=== PATIENT | female | born 1975 | race Two or more races ===

== ENCOUNTER → 2025-04-13 12:30 | Outpatient (BNV) | payer OTHER, SELFPAY | PROVIDERS: PCP Nurse Practitioner Family; Visit Provider Internal Medicine | DX: Z12.31 Encounter for screening mammogram for malignant neoplasm of breast (principal) | CPT/HCPCS: 77063; 77067 ==

== ENCOUNTER 2025-04-13 12:33 | Outpatient (REF) | payer OTHER, SELFPAY ==
--- OUTSIDE RECORDS SUMMARY | 2025-04-13 12:38 | XMS_ITS ---
Author Organization [facility] Address [address] [place] [phone] Care Team Providers Care Hospice Office Coordinator Name Role Phone Amara Ashraf Primary Care Provider Cristian Nuno Unavailable [phone] Encounters En[facility] [address] [facility]/17/[facility]24 Cristian Stinson Plan Of Treatment No Information Progress Notes * Jaja NOWAKDOB: [birth year] (50 yo F)Acc No.[id number]:06/17/2024 Progress Notes Patient:?Jaja NOWAK Provider:?Cristian Stinson DPM :1975???Age:49 Y???Sex:Female D ate:06/17/2024 Address:[address] [place], [place] [id number] Pcp:Amara Ashraf Subjective: * Chief Complaints: * ??? * Medical History:? Objective: * Vitals:? Assessment: Plan: * Treatment: * Images: * The named appointment provid er may or may not be the originator of this progress note, and it is not deemed complete until electronically signed by the appointment provider. Sign off status: Pending * Provider:?Cristian Stinson DPM Date:?2023 Generated for Luis block/Nona/eTransmitting on:?04/13/2025 12:38 PM EDT
== END 2025-04-13 12:34 | disposition home or self-care (01) ==
LOC: HO.MAMMO 12:33
PROVIDERS: PCP Nurse Practitioner Family; Visit Provider Nurse Practitioner Family
DX: Z12.31 Encounter for screening mammogram for malignant neoplasm of breast (principal)
CPT/HCPCS: 77063; 77067

== ENCOUNTER 2025-05-17 14:21 | Outpatient (REF) | payer OTHER, SELFPAY ==
--- OUTSIDE RECORDS SUMMARY | 2025-05-17 14:52 | XMS_ITS | Encounter Summary ---
Author Organization [facility] Address [address] [place] [address] Care Team Providers Care Assistant Film Editor Name Role Phone Amara Ashraf MD Primary Care Provider [phone] Reason for Visit * Reason Onset Date Comments PAC Surgery/procedure Scheduling 11/21/2023 Encounter Details Date Type Department Care Team (Late st Contact Info) Description 11/21/2023 Telephone [facility] Endoscopy [address] [place] [address] Telephone Intake, Staff PAC Surgery/procedure Scheduling Social History Tobacco Use Types Packs/Day Years Used Date Smoking Tobacco: Never Smokeless Tobacco: Never Comments:: Alcohol Use Standard Drinks/Week Comments No 0 (1 standard drink = 0.6 oz pur e alcohol) Transportation Answer Date Recorded Please veronica the areas for wh ich the patient would like information or assistance: Stress 11/13/2023 Lack of Transportation (Medical) Not on file 11/13/2023 Housing Stability Answer Date Recorded Please veronica the areas for wh ich the patient would like information or assistance: Stress 11/13/2023 Unable to Pay for Housing in the Last Year Not o n file 11/13/2023 Last EPDS Total Score Not on file 11/13/2023 Unstable Housing in the Last Year Not on file 11/13/2023 Comments Unknown Sex and Gender Information Value Date Recorded Sex Assigned at Female 07/13/2021 12:21 PM EDT Legal Sex Female 6:49 PM EDT Gender Identity Female 07/13/2021 12:21 PM EDT Sexual Orientation Straight 07/13/2021 12 :21 PM EDT documented as of this encounter Miscellaneous Notes * Telephone Encounter - Silvia Sutton - 11/21/2023 2:21 PM EST Patient scheduling for screening colonoscopy pls call patient to schedule documented in this encounter Plan of Treatment Not on file documented as of this encounter Visit Diagnoses Not on filedocumented in this encounter Care Teams Assistant Film Editor Relationship Specialty Start Date End Date Amara Ahsraf MD [address] [place] [id number] PCP - General Family Medicine 06/06/17 documented as of this encounter
--- OUTSIDE RECORDS SUMMARY | 2025-05-17 14:52 | XMS_ITS | Clinical Summary ---
Author Organization [employer] Address [address] [place] [address] Care Team Providers Care Aircraft Rigging And Controls Mechanic Name Role Phone Mima Caldwellily MICHAEL Primary Care Provider [phone] Allergies No known active allergies Medications cyanocobalamin (Vitamin B-12) 500 MCG tablet Take 1 tablet by mouth Once per day. Active Ascorbic Acid (vitamin C) 250 MG tablet Take 1 tablet by mouth Once per day. Active Multiple Vitamin (multivitamin) tablet Take 1 tablet by mouth Once per day. Active gabapentin (Neurontin) 100 MG capsule TAKE 1 CAPSULE (100 MG) BY MOUTH AT BEDTIME FOR 7 DAYS, THEN 2 CAPSULES (200 MG) AT BEDTIME FOR 7 DAYS, THEN 3 CAPSULES (300 MG) AT BEDTIME FOR 16 DAYS. 69 capsule 03/25/2025 Active valACYclovir (Valtrex) 500 MG tabletIndicatio ns:HSV infection Take 4 tablets (2,000 mg) by mouth 2 times daily. 16 tablet 11 05/04/2025 Active Tirzepatide-Judah ght Management (Zepbound) 2.5 MG/0.5ML solution auto-injectorIn dications:Obesi ty (BMI 30-39.9) Inject 0.5 mL (2.5 mg) under the skin 1 (one) time per week. 2 mL 1 05/17/2025 07/12/20 25 Active Active Problems Problem Noted Date Diagnosed Date Lumbar radiculopathy 05/17/2025 HSV infection 05/04/2025 Health care maintenance 02/22/2025 Assessment & Plan (03/16/2025 2:10 PM EDT): Mammogram ordered, Per pt report pap last year, Cologuard ordered Metabolic labs as ordered below Breast screening 02/22/2025 Assessment & Plan (03/16/2025 2:09 PM EDT): Mammogram ordered Encounter for screening for malignant neoplasm o f colon 02/22/2025 Assessment & Plan (03/16/2025 2:09 PM EDT): Cologuard ordered Screening for colon cancer 02/22/2025 SORAYA positive 02/22/2025 Assessment & Plan (03/16/2025 2:09 PM EDT): Chronic pain, referral to rheumatology Obesity (BMI 30-39.9) 02/22/2025 Assessment & Plan (03/16/2025 2:09 PM EDT): Has lost weight, attributes wt loss with less joint pains, monitor for weight gain Hot flashes 02/22/2025 Assessment & Plan (03/16/2025 2:10 PM EDT): Suspect perimenopause Rash of foot 02/22/2025 Assessment & Plan (03/16/2025 2:09 PM EDT): Referral to podiatry Class 1 obesity 01/19/2025 Spider veins 03/06/2024 Class 2 obesity 06/21/2022 Lesion of vulva 06/21/2022 Thumb injury 09/21/2021 Acquired keratosis palmaris et plantaris 017 Acrochordon 06/07/2017 Inflamed seborrheic keratosis 06/07/2017 Neoplasm of uncertain behavior of skin 7 Bilateral foot pain 04/23/2017 Callus of foot 04/23/2017 Congenital pes planus 04/23/2017 History of pain when walking 04/23/2017 Dysuria 04/16/2017 Polyuria 04/16/2017 Numerous moles 04/08/2017 Menorrhagia 02/25/2017 Pain in hand 02/20/2017 Elevated antinuclear antibody (SORAYA) level 2016 Cough 12/26/2016 Eczema 12/26/2016 Fatigue 12/26/2016 Heartburn 12/26/2016 Polyarthritis 12/26/2016 Sore throat 12/26/2016 Abdominal pain 11/27/2016 Varicose veins with inflammation 04/19/2016 Encounters Date Type Department Care Team Description 05/17/2025 2:30 PM EDT Office Visit [facility] [address] [place] [address] Fior Caldwell NP Obesity (BMI 30-39.9) (Primary Dx); Lumbar radiculopathy 05/17/2025 Travel 05/10/2025 Travel 05/04/2025 Orders Only [facility] [address] [place] [address] Fior Caldwell NP HSV infection (Primary Dx) 05/03/[address] [address] Fior Caldwell NP Nurse Triage 03/24/[address] [address] Fior Caldwell NP 03/16/[address] [address] Fior Caldwell NP Referral-Rheumatology 02/22/2025 9:45 AM EDT Office Visit [address] [address] Fior Caldwell NP Health care maintenance (Primary Dx); Breast screening; Encounter for screening for malignant neoplasm of colon; Screening for colon cancer; SORAYA positive; Obesity (BMI 30-39.9); Hot flashes; Rash of foot 02/22/2025 Travel 02/17/2025 Travel 02/15/2025 Patient Outreach [facility] [address] [place], [place] [phone] Fior Caldwell NP Pre-visit Planning (SDOH negative, Tobacco screening negative. ) from Last 3 Months Immunizations Immunization Administration Dates Next Due Influenza injectable quadrivalent preservative f ree 09/13/2018 PPD Test 04/08/2017 Social History Tobacco Use Types Packs/Day Years Used Date Smoking Tobacco: Never Smokeless Tobacco: Never Tobacco Cessation:Counseling Given: Not Answered Housing Stability Answer Date Recorded What is your housing situati on today? I do not have housing (Staying with others, in a hotel, in a skilled nursing, living outside on the street, on a beach, in a car, or in a park 02/22/[address] you li ve. Do you have problems with any of the following? Inadequate heat 02/22/2025 Food Insecurity Answer Date Recorded Within the past 12 months, y ou worried that your food would run out before you got money to buy more: Sometimes True 2024 Within the past 12 months,th e food you bought just didn't last and you didn't have enough money to get more: Sometimes True 02/22/2025 Transportation Answer Date Recorded In the past 12 months, has l ack of transportation kept you from medical appts, meetings, work or from getting things needed for daily living? No 02/15/2025 Utilities Answer Date Recorded In the past 12 months, has t he electric, gas, oil or water company threatened to shut off services in your home? Yes 02/22/2025 Depression Answer Date Recorded Patient Health Questionnaire-2 Score 3 02/22/2025 Internet Access Answer Date Recorded Internet Access Q1 Yes 02/15/2025 Internet Access Q2 Not on file 02/15/2025 Comments Unknown Sex and Gender Information Value Date Recorded Sex Assigned at Female 11/04/2024 3:15 PM EST Legal Sex Female 9:04 AM EDT Gender Identity Female 02/11/2025 11:00 AM EDT Sexual Orientation Don't know 02/11/2025 11 :00 AM EDT Last Filed Vital Signs Vital Sign Reading Time Taken Comments Blood Pressure 122/78 05/17/2025 2:00 PM EDT Pulse 74 05/17/2025 2:00 PM EDT Temperature 35.6 C (96 F) 05/17/2025 2:00 PM EDT Respiratory Rate 14 05/17/2025 2:00 PM EDT Oxygen Saturation 97% 05/17/2025 2:00 PM EDT Inhaled Oxygen Concentration - - Weight 76.7 kg (169 lb) 05/17/2025 2:00 PM EDT Height 157.5 cm (5' 2 ) 05/17/2025 2:00 PM EDT Body Mass Index 30.91 05/17/2025 2:00 PM EDT Plan of Treatment Upcoming Encounters Date Type Department Care Team (Late st Contact Info) Description 06/25/2025 3:30 PM EDT Office Visit [facility] [address] [place], [place] [phone] Fior Caldwell NP [address] [place] [address] Health Maintenance Due Date Last Done Comments CT Colonography 1975 Colonoscopy 1973 FIT 1975 FOBT 1975 HIV Screening 1973 Lipid Panel 1973 Sigmoidoscopy 1973 Derm Melanoma Skin Check 1973 Family Planning (PISQ) 1988 Hepatitis C Screening 1991 DTaP/Tdap/Td Vaccines (1 - Tdap) 1992 Hepatitis B Vaccines (1 of 3 - 19+ 3-dose series) 1992 Pap Smear 1994 Cervical Cancer Screening 2003 HPV/Cotest 2003 Pneumococcal Vaccine: 50+ Years (1 of 1 - PCV) 2023 Zoster Vaccines (1 of 2) 2023 COVID-19 Vaccine (3 - 2023-2 5 season) 2024 01/19/2021, 12/13/2020 Influenza Vaccine (Season Ended) 2025 09/13/2018 Disability Screening 02/17/2026 02/17/2025 Alcohol/Substance Use Screening 02/22/2026 02/22/2025 Depression Screening 02/22/2026 02/22/2025, 02/22/2025 SDOH Screening 02/22/2026 02/22/2025 Tobacco Screening 05/17/2026 05/17/2025 Mammogram 04/13/2027 04/13/2025 Colorectal Cancer Screening 02/27/2028 FIT DNA/Cologuard 02/27/2028 02/26/2025 RSV Patients and Patients Aged 60 years or older (1 - 1-dose 75+ series) 2048 HIB Vaccines Aged Out No longer eligi ble based on patient's age to complete this topic HPV Vaccines Aged Out No longer eligi ble based on patient's age to complete this topic Hepatitis A Vaccines Aged Out No long er eligible based on patient's age to complete this topic IPV Vaccines Aged Out No longer eligi ble based on patient's age to complete this topic Meningococcal B Vaccine Aged Out No l onger eligible based on patient's age to complete this topic Meningococcal Vaccine Aged Out No dani noam eligible based on patient's age to complete this topic RSV under 20 months Aged Out No longe r eligible based on patient's age to complete this topic Rotavirus Vaccines Aged Out No longer eligible based on patient's age to complete this topic Procedures Procedure Name Priority Date/Time Associated Diagnosis Comments BI MAMMOGRAM SCREENING TOMOSYNTHESIS BILATERAL Routine 04/13/2025 12:35 PM EDT Breast screening LAB COLOGUARD COLON CANCER SCREEN Routine 02/26/2025 7:38 AM EDT Screening for colon cancer from Last 3 Months Results * BI Mammogram Screening Tomosynthesis Bilateral (04/13/2025 12:35 PM EDT) Anatomical Region Laterality Modality Breast Bilateral Mammography 04/13/2025 12:3 5 PM EDT Narrative 04/18/2025 7:27 PM EDT [facility] [address] [place] [address] Mammography Report Signed Patient: Jaja Nowak MR#: [id number] 82 : 1975 Acct:[id number] Age/Sex: 50 / F ADM Date: 04/13/25 Loc: RUDY.MAMMDagmar Attending Dr: Fior Caldwell DIRECTOR GLOBAL STRATEGIC PUBLISHER SALES Ordering Physician: Fior Caldwell DIRECTOR GLOBAL STRATEGIC PUBLISHER SALES Results: 2Benign Findings Date of Service: 04/13/25 Follow Up: 1 Year From Orig inal Mammogram Procedure(s): MM tomosynthesis screening BI Accession Number(s): [id number] cc: Fior Caldwell DIRECTOR GLOBAL STRATEGIC PUBLISHER SALES EXAMINATION: MM SCREENING DIGITAL BREAST TOMOSYNTHESIS, BILATERAL CLINICAL INFORMATION: Screening. Asymptomatic. COMPARISON: Mammography: Comparison is made with available priors TECHNIQUE: Digital breast mammography with tomosynthesis is performed in both the craniocaudal and mediolateral oblique views along with computer-aided detection (CAD). FINDINGS: The breasts are heterogeneously dense, which may obscure small masses (ACR BI-RADS breast composition Category c). Bilateral reduction mammoplasty. There are no significant masses, abnormal calcifications, or other abnormalities. MM/MM tomosynthesis screening BI IMPRESSION: No mammographic evidence of malignancy. ASSESSMENT: BI-RADS BI-RADS 2 - Benign Findings RECOMMENDATION: Routine annual mammography screening. 1 year F/U This examination should not preclude the clinical evaluation of a suspicious palpable abnormality. This patient's information was entered into a reminder system with a target due date for their next mammogram. Electronically signed by: Sylvia Quijano DO 04/18/2025 07:25 PM EDT RP Dictated By: Sylvia Quijano DO Signed By: <Electronically signed by Sylvia Quijano DO in OV> 04/18/25 192 DD/ 1235 TD/TT: 04/13/25 1246 Engine Monitor: Procedure Note Donotuseinterpreter, Image - [facility]18/[facility] [address] [place] [address] Mammography Report Signed Patient: Jaja NowakMR#: [id number] 82 : 1975Acct:[id number] Age/Sex: 50 / FADM Date: 04/13/25 Loc: .MAMMO Attending Dr: Fior Caldwell DIRECTOR GLOBAL STRATEGIC PUBLISHER SALES Ordering Physician: Fior Caldwell NPResults: 2Benign Findings Date of Service: 04/13/25Follow Up: 1 Year From Orig [facility] Mammogram Procedure(s): MM tomosynthesis screening BI Accession Number(s): [id number] cc: Fior Caldwell DIRECTOR GLOBAL STRATEGIC PUBLISHER SALES EXAMINATION: MM SCREENING DIGITAL BREAST TOMOSYNTHESIS, BILATERAL CLINICAL INFORMATION: Screening. Asymptomatic. COMPARISON: Mammography: Comparison is made with available priors TECHNIQUE: Digital breast mammography with tomosynthesis is performed in both the craniocaudal and mediolateral oblique views along with computer-aided detection (CAD). FINDINGS: The breasts are heterogeneously dense, which may obscure small masses (ACR BI-RADS breast composition Category c). Bilateral reduction mammoplasty. There are no significant masses, abnormal calcifications, or other abnormalities. MM/MM tomosynthesis screening BI IMPRESSION: No mammographic evidence of malignancy. ASSESSMENT: BI-RADS BI-RADS 2 - Benign Findings RECOMMENDATION: Routine annual mammography screening. 1 year F/U This examination should not preclude the clinical evaluation of a suspicious palpable abnormality. This patient's information was entered into a reminder system with a target due date for their next mammogram. Electronically signed by: Sylvia Quijano DO 04/18/2025 07:25 PM EDT RP Dictated By: Sylvia Quijano DO Signed By: <Electronically signed by Sylvia Quijano DO in OV> 04/18/251924 DD/ 1235 TD/TT: 04/13/25 1246 Engine Monitor: Fior Caldwell NP [facility] BI PROCEDURES Edited Result - Final * Cologuard?? colon cancer screening (02/26/2025 7:38 AM EDT) Cologuard Result Negative Negative 03/04/20 12:25 AM EDT [facility] ([place] #:[id number]) Comment: NEGATIVE TEST RESULT. A negative Cologuard result indicates a low likelihood that a colorectal cancer (CRC) or advanced adenoma (adenomatous polyps with more advanced pre-malignant features) is present. The chance that a person with a negative Cologuard test has a colorectal cancer is less than 1 in 1500 (negative predictive value >99.9%) or has an advanced adenoma is less than 5.3% (negative predictive value 94.7%). These data are based on a prospective cross-sectional study of 10,000 individuals at average risk for colorectal cancer who were screened with both Cologuard and colonoscopy. (Amanda Gutierrez al, N Engl J Med 2014;370(14):7190-9683) The normal value (reference range) for this assay is negative. COLOGUARD RE-SCREENING RECOMMENDATION: Periodic colorectal cancer screening is an important part of preventive healthcare for asymptomatic individuals at average risk for colorectal cancer. Following a negative Cologuard result, the [place] [employer] Society and U.S. Multi-Society Task Force screening guidelines recommend a Cologuard re-screening interval of 3 years. References: [place] [employer] Guideline for Colorectal Cancer Screening: https://www.cancer.org/cancer/pagcf-malzqy-jargpk/igenjdxxe-kbgyshfug-piifjoq/ac s-rec ommendations.html.; Uche DK, Waldemar CR, Suresh KendallK, Colorectal Cancer Screening: Recommendations for Physicians and Patients from the U.S. Multi-Society Task Force on Colorectal Cancer Screening , Am J Gastroenterology 2017; 112:3629-8484. TEST DESCRIPTION: Composite algorithmic analysis of stool DNA-biomarkers with hemoglobin immunoassay. Quantitative values of individual biomarkers are not reportable and are not associated with individual biomarker result reference ranges. Cologuard is intended for colorectal cancer screening of adults of either sex, 45 years or older, who are at average-risk for colorectal cancer (CRC). Cologuard has been approved for use by the U.S. FDA. The performance of Cologuard was established in a cross sectional study of average-risk adults aged 50-84. Cologuard performance in patients ages 45 to 49 years was estimated by sub-group analysis of near-age groups. Colonoscopies performed for a positive result may find as the most clinically significant lesion: colorectal cancer [4.0%], advanced adenoma (including sessile serrated polyps greater than or equal to 1cm diameter) [20%] or non- advanced adenoma [31%]; or no colorectal neoplasia [45%]. These estimates are derived from a prospective cross-sectional screening study of 10,000 individuals at average risk for colorectal cancer who were screened with both Cologuard and colonoscopy. (Amanda Gutierrez al, N Engl J Med 2014;370(14):6604-5161.) Cologuard may produce a false negative or false positive result (no colorectal cancer or precancerous polyp present at colonoscopy follow up). A negative Cologuard test result does not guarantee the absence of CRC or advanced adenoma (pre-cancer). The current Cologuard screening interval is every 3 years. ([place] [employer] and U.S. Multi-Society Task Force). Cologuard performance data in a 10,000 patient pivotal study using colonoscopy as the reference method can be accessed at the following location: www.[employer].MostLikely/results. Additional description of the Cologuard test process, warnings and precautions can be found at www.colTaskmitrd.com. Stool specimen (specimen) 02/26/2025 7:38 AM EDT 02/27/2025 12:09 PM EDT Fior Caldwell DIRECTOR GLOBAL STRATEGIC PUBLISHER SALES LAB MOLECULAR DIAGNOSTICS ORDERA BLES Final Result [facility] (CLIA #:[id number]) [address] [place] [address], from Last 3 Months Insurance [facility] Care Teams Aircraft Rigging And Controls Mechanic Relationship Specialty Start Date End Date Fior Caldwell NP [address] [place] [phone] PCP - General Family Medicine 02/22/25
--- OUTSIDE RECORDS SUMMARY | 2025-05-17 14:52 | XMS_ITS | Clinical Summary ---
Author Organization [facility] Address [address] [place] [address] Phone Care Team Providers Care Doorshaker Name Role Phone Fior Caldwell ECONOMIC DEVELOPMENT MANAGER Primary Care Provider [phone] Social History Tobacco Use Types Packs/Day Years Used Date Smoking Tobacco: Never Assessed Comments Unknown Sex and Gender Information Value Date Recorded Sex Assigned at Not on file Legal Sex Female 8:04 AM EDT Gender Identity Not on file Sexual Orientation Not on file Plan of Treatment Upcoming Encounters Date Type Department Care Team ([facility] Contact Info) Description 06/29/2025 2:30 PM EDT Consult Orthopedic Surgery - [place] [id number] [phone] Mick Jim, DPM [address] [address] Health Maintenance Due Date Last Done Comments Breast Cancer Screening 1973 DTaP,Tdap,and Td Vaccines (1 - Tdap) 1992 Hepatitis B Vaccines (1 of 3 - 19+ 3-dose series) 1992 Cervical Cancer Screening: P ap Smear 1994 Pneumococcal Vaccine: 50+ Ye ars (1 of 1 - PCV) 2023 Zoster Vaccines (1 of 2) 2023 COVID-19 Vaccine ( - 2023-2 5 season) 2024 Colorectal Cancer Screening: Colonoscopy 04/06/2025 Depression Screening 04/06/2025 HIV Screening 04/06/2025 Hepatitis C Screening 04/06/2025 Social Influencers of Health Screening 04/06/2025 Influenza Vaccine (Season Ended) 2025 HIB Vaccines Aged Out No longer eligi [...] on patient's age to complete this topic MMR Vaccines Aged Out No longer eligi ble based on patient's age to complete this topic Meningococcal ACWY Vaccine Aged Out N o longer eligible based on patient's age to complete this topic Meningococcal B Vaccine Aged Out No l onger eligible based on patient's age to complete this topic Pneumococcal Vaccine: Pediat rics (0 to 5 Years) and At-Risk Patients (6 to 64 Years) Aged Out No longer eligible b ased on patient's age to complete this topic RSV Immunization Patients Un conrado 20 months Aged Out No longer eligible b ased on patient's age to complete this topic Varicella Vaccines Aged Out No longer eligible based on patient's age to complete this topic Insurance [employer] Care Teams Doorshaker Relationship Specialty Start Date End Date Fior Caldwell FNP [address] [place] [address] PCP - General Nurse Practitioner 04/06/25
[2025-05-17 16:17] LABS: Estimated Average Glucose 97 mg/dL; Total Hemoglobin (HGBA1C) 2948.4803 umol/L
[2025-05-17 16:26] LABS: Alanine Aminotransferase 21 U/L (0-31); Albumin Level 4.3 g/dL (3.5-5.0); Alkaline Phosphatase 56 U/L (39-117); Anion Gap 11 (12-20); Aspartate Amino Transferase 28 U/L (5-31); Bilirubin Total 0.4 mg/dL (0.0-1.0); Blood Urea Nitrogen 15 mg/dL (9-16); Calcium 9.1 mg/dL (8.4-10.2); Carbon Dioxide 28 mmol/L (22-29); Chloride 106 mmol/L (96-108); Estimated Glomerular Filt Rate > 60; Glucose Random 80 mg/dL (60-115); Potassium 3.9 mmol/L (3.3-5.1); Sodium 141 mmol/L (135-145); Total Protein 7.3 g/dL (6.5-8.0)
== END 2025-05-17 14:22 | disposition home or self-care (01) ==
LOC: HO.HHCL 14:21
PROVIDERS: PCP Nurse Practitioner Family; Visit Provider Nurse Practitioner Family
DX: E66.9 Obesity, unspecified (principal)
CPT/HCPCS: 36415; 80053; 83036

== ENCOUNTER 2025-09-24 12:51 | Outpatient (AMB) | payer OTHER, SELFPAY ==
--- OUTSIDE RECORDS SUMMARY | 2024-06-17 08:00 | XMS_ITS ---
Author Organization [facility] Address [address] [place] [phone] Care Team Providers Care Sap Mobility Architect Name Role Phone Amara Ashraf Primary Care Provider Unavailabl Cristian Jarvis Unavailable [phone] Encounters Encounter [facility] Date [facility] [address] [facility]/17/[facility] Cristian Stinson Plan Of Treatment No Information Progress Notes * Jaja NOWAKDOB: 3 (50 yo F)Acc No.[id number]:06/17/2024 Progress Notes Patient: Jaja HENDRICKSON Provider: Syd Stinson DPM :1975 A ge:49 Y S ex:Female Date:06/17/2024 Address:[address] [place], [place] [id number] Pcp:Amara Ashraf Subjective: * Chief Complaints: * * Medical History: Objective: * Vitals: Assessment: Plan: * Treatment: * Images: * The named appointment provid er may or may not be the originator of this progress note, and it is not deemed complete until electronically signed by the appointment provider. Sign off status: Pending * Provider: Syd Stinson DPM Date: 06/17/2024 Generated for Luis block/Nona/Leonidas on: 11/24/2024 02:58 PM EST
--- NOTE | 2025-09-24 12:57 | MHC.OFFVIS ---
Vital Signs 09/24/25 12:59 Height 5 ft 2 in Weight 175 lb 7.807 oz BMI 32.1 BP 114/79 Blood Pressure Location Lt brachial Position Sitting Pulse 80 Intake Visit Reasons: incomplete defecation lumbar radic Intake Note: New patient in office today for incomplete defecation. CC: Patient reports that she's had 3 episode of fecal incontinence with liquid stools. She also reports abd pain and cramps. Denies other GI symptoms. Manufacturing Engineer Required: No Accompanied by: Self / Same As Patient Allergies No Known Allergies Allergy (Verified 09/24/25 13:03) HPI HPI incomplete defecation lumbar radic: Details: 50-year-old female here for initial evaluation of incomplete defecation. She is referred by [facility]. PMX Obesity Eczema Varicose veins History of HSV infection Lumbar degenerative disc disease with radiculopathy Polyarthritis Urinary incontinence * SURGICAL HISTORY shoulder srugery rotator cuff Rt knee ligament repari breast reduction * ALLERGIES :NKDA * [employer] LABS: Laboratory Tests 05/17/25 14:56 Estimated GFR > 60 Hemoglobin A1c % 5.0 Total Bilirubin 0.4 AST 28 ALT 21 Alkaline Phosphatase 56 TODAY'S VISIT [facility] Medical History (Updated 09/24/25 @ 13:50 by VIRIDIANA Kate) Constipation Social History (Updated 09/24/25 @ 13:[address] [facility]) Alcohol intake: current Alcohol intake frequency: holidays/special occasions only Patient Tobacco Use Status: Never used Tobacco Review of Systems Const Denies fatigue, Denies fever(s), Denies night sweats, Denies poor appetite and Denies weight loss Eyes Details: glasses Reports requires corrective lenses ENT Reports Normal hearing present, Denies dental pain, Denies dysphagia, Denies hearing loss, Denies mouth pain, Denies odynophagia, Denies throat swelling, Denies tongue swelling and Reports other (Dentition adequate) Card Reports no additional complaints Resp Reports no additional complaints GI Details: Denies abdominal pain, Denies melena, Denies bloating, Denies hematochezia, Reports constipation, Denies GI cramping, Denies dysphagia, Denies excessive flatus, Denies early satiety, Denies heartburn, Denies diarrhea, Reports loose stools, Denies nausea, Denies odynophagia, Denies vomiting and Denies hematemesis Reports metrorrhagia, Reports menorrhagia and Reports hot flashes Skin/Breast Denies pruritus, Denies lesions, Denies rash and Denies jaundice Neuro Reports Normal hearing present and Denies Abnormal speech present Endo Denies fatigue Aller/Immun Denies throat swelling and Denies tongue swelling Physical Exam Vital Signs: Last Vital Signs Pulse 80 09/24/25 12:59 BP 114/79 09/24/25 12:59 BMI result Body Mass Index 32.1 Const General: cooperative, no acute distress, well developed and well groomed Nutritional Appearance: well nourished and obese Orientation/consciousness: oriented to person, oriented to place and oriented to time Limitations: No language barrier HEENT Head: Yes normocephalic and Yes atraumatic Eyes General: appearance normal, both eyes and all related structures Pupils: Equal, round and reactive pupils present Neck Neck: Yes normal visual inspection and Yes no lymphadenopathy Thyroid: Thyroid normal Resp Effort & Inspection: normal respiratory effort and able to speak in complete sentences Auscultation: clear to auscultation bilaterally Cardio Rate: regular rate Rhythm: regular rhythm Heart sounds: Normal, physiologic split S2 sound present Peripheral pulses: radial pulses present and posterior tibial pulses present GI Inspection: No distended, No Abdominal panniculus present and Yes obesity Palpation (GI): Soft to palpation, nontender, no guarding, not rigid and No hepatosplenomegaly present Percussion: Yes normal to percussion Auscultation: normal bowel sounds Rectal Exam - Female: deferred Skin General skin exam: no rashes or lesions noted, turgor normal, skin not dry, no jaundice, No spider nevi and no striae Rashes: no rashes Nails: normal Neuro General: oriented to person, oriented to place and oriented to time Cranial nerves: Yes Equal, round and reactive pupils present and Yes Normal hearing present Speech: No Abnormal speech present Extrem General: Yes normal to inspection, No clubbing, No cyanosis and No edema Psych Appearance: grossly normal and well kempt Mental Status: mental status grossly normal Speech and movement: Normal speech and movement present Affect: normal affect Attitude: cooperative Thought process: Normal thought process present and not confabulating Thought content: Normal thought content present Insight: Good insight present (Psych) Judgement: Good judgement present (Psych) Assessment & Plan Assessment & Plan (1) Diarrhea: Code(s): R19.7 - Diarrhea, unspecified Category: Medical Plan - The patient is a 50-year-old female presenting with gastrointestinal concerns, primarily bowel incontinence and intermittent diarrhea. - She experienced notable incontinence initially in January of last year, again in January of the current year, and two months ago, leading to concerns about bowel control during activities. - The episodes involve liquid stools and are preceded by gastrointestinal cramping and increased noise from the intestines, known as borborygmi. - She has a history of constipation managed with [id number] Alor pills. - Menopausal symptoms include night-time hot flashes with no substantial impact on bowel symptoms. - Comprehensive screening with Cologuard was negative, and no correlation with dietary or medication changes was identified. - Begin taking Benefiber or a similar fiber supplement twice daily to help manage bowel movements. - Keep a detailed food diary to help identify potential dietary triggers. - Schedule an appointment with a auto air conditioning mechanic to evaluate heavy menstrual bleeding. - Plan to return in six weeks for follow-up and assessment of symptom management. - Please ensure to sign a consent form for release of hospital records, specifically imaging, from [facility]. - Stay attentive for any new or alarming symptoms and seek medical attention if problems escalate before the follow-up appointment. Return office visit in 6 weeks Orders: Orders C Reactive Protein 09/24/25 R19.7 - Diarrhea, unspecified Rast Allergen 09/24/25 R19.7 - Diarrhea, unspecified Calprotectin, Fecal 09/24/25 R19.7 - Diarrhea, unspecified Transglutaminase IgA 09/24/25 R19.7 - Diarrhea, unspecified Transglutaminase Ab IgG 09/24/25 R19.7 - Diarrhea, unspecified Pancreatic Elastase-1 09/24/25 R19.7 - Diarrhea, unspecified Coding Level of Care Code New Pt Level 3 (06295) Diagnoses Diarrhea R19.7
[2025-09-24 12:59] VITALS: BP 114/79; PULSE 80; BMI 32.1
--- OUTSIDE RECORDS SUMMARY | 2025-09-24 14:59 | XMS_ITS | Encounter Summary ---
Author Organization [employer] Address [address] [place] [address] Care Team Providers Care Catalyst Concentration Operator Name Role Phone Fior Caldwell NP Primary Care Provider [phone] Encounter Details Date Type Department Care Team (Latest Contact Info) Description 09/21/2025 Travel Social History Tobacco Use Types Packs/Day Years Used Date Smoking Tobacco: Never Smokeless Tobacco: Never Housing Stability Answer Date Recorded What is your housing situati on today? I do not have housing (Staying with others, in a hotel, in a nursing home, living outside on the street, on a [...] Female 02/11/2025 11:00 AM EDT Sexual Orientation Straight 09/21/2025 4: 38 AM EST documented as of this encounter Plan of Treatment Upcoming Encounters Date Type Department Care Team (Late st Contact Info) Description 09/28/2025 1:45 PM EST Office Visit [facility] MEDICINE [address] [place] [address] Fior Caldwell NP [address] [place] [address] documented as of this encounter Visit Diagnoses Not on filedocumented in this encounter Care Teams Catalyst Concentration Operator Relationship Specialty Start Date End Date Fior Caldwell NP [address] [place] [address] PCP - General Family Medicine 02/22/25 documented as of this encounter
--- OUTSIDE RECORDS SUMMARY | 2025-09-24 14:59 | XMS_ITS | Data Portability ---
Author Organization [facility], [facility] Address [address] [place] [address] Care Team Providers Care Web Content Executive Name Role Phone AMRIK CAIN Primary Care Provider AMRIK CAIN Referring Provider Assessment No assessment recorded. Plan of Treatment Reminders Order Date Submit Date Provider Last Modified By Organization Details Last Modified Time Details Appointments None record ed. Lab None record ed. Referral None record ed. Procedures None record ed. Surgeries None record ed. Imaging None record ed. Medication Orders None record ed. Patient TargetsNo targets recorded. Patient Instructions Encounter Date Encounter Id Patient Instructions Last Modified By Organization Details Last Modified Time 06/08/2020 [id number] I reviewed my findings with this pleasant patient. She was educated on apropriate foot care and shoe gear. I debrided and pared down the bilateral calluses. I cauterized the porokeratoses with trichloracetic acid. I explained that the lesions will continue to return due to her foot type. She was advised to use a foot file on her feet to reduce the callus buildup. She was also advised to moisturize her feet daily and to avoid barefoot walking. If we find that she cannot achieve adequate pain relief from these mthods of treatment then we may consider custom molded orthotics with offloading padding to reduce direct pressure on the areas. The patient was comfortable with this plan and all questions were answered. [email or web address] Not available 06/08/2020 14:49:21 Reason for Referral None Reported. Problems Name Problem SNOMED Code Status Onset Date Resolution Date Notes Provider Name and Address Organization Details Recorded Time Arthritis 3442170 Active 020 Belinda Thibeault null, [facility] 06/08/2020 11:37:40 Problem Notes None recorded. Procedures Surgical History Date Name Laterality Status Provider Name and Address Organization Details Recorded Time 8 complete repair of rotator cuff completed Belinda Vidalmartina [facility] 06/08/2020 11:39:31 7 Knee arthroscopy/s urgery completed Belinda Vidalmartina [facility] 06/08/2020 11:39:52 Back Surgery completed Belinda Vidalmartina [facility] 06/08/2020 11:40:25 Imaging Results None recorded. Procedure Notes None recorded. Medical Equipment None Reported. Allergies No known drug allergies Medications Name Sig Start Date Stop Date Status Note LastModified by Organization Details LastModified Time vitamins A and D active Not Available Not Available Not Available ibuprofen 800 mg as needed active Not Available Not Available No t Available multivitamin active Not Available Not Available Not Available Vitals Date Recorded Body height Body mass index (BMI) Body weight Body temperature Systolic And Diastolic Provider Name and Address Organization Details Last Updated DateTime 06/08/2020 157.48 cm 32 kg/m2 18597.6 6 g 97.1 [degF] 120/70 mm[Hg] Belinda Vidalmartina [facility] 0 11:36:34 Social History Question Answer Notes LastModified by [employer] Details LastModified Time Tobacco Smoking Status Never Smoker Belinda Woodallsulema dagoberto [facility] 06/08/2020 11:38:37 Which Illicit Or Recreational Drugs Have You Used? None Information not available 06/08/2020 Marital Status Single Informati on not available 06/08/2020 What Was The Date Of Your Most Recent Tobacco Screening? 06/08/2020 Information not available 06/08/2020 How Much Tobacco Do You Smoke? No Information not available 06/08/2020 How Many Years Have You Smoked Tobacco? 0 Information not available 06/08/2020 Sex: Unknown Functional Status Question Answer Note LastModified by [employer] Details LastModified Time What is your level of alcohol consumption? None Information not available 06/08/2020 Do you or have you ever used smokeless tobacco? 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 Never used electronic cigarettes Information not available 06/08/2020 Mental Status None recorded. Family History Relationship Description Onset Age of this Age Resolved Age Notes LastModified by Organization Details LastModified Time Mother Arthritis Not avail able 06/08/2020 11:37:49 Father Cerebrovascu lar accident Not available 0 06/08/2020 11:38:03 Father Diabetes mellitus Not available 05/19 11:38:11 Unspecified Relation Hypertensive disorder Manisha davis Not available 06/08/2020 11:38:29 Medical History Condition Response Coronary Artery Disease N Gout N Edema N Arthritis Y Blood Clot N Cancer N Stroke N Leg or Foot Ulcers N Raynaud's Disease N Polio N Rheumatoid Arthritis N Headaches N Fibromyalgia N Kidney Disease N Artificial Joints N Bleeding Disorder N Tuberculosis N AIDS/HIV N Asthma N Substance Abuse N Peripheral Vascular Disease N Hepatitis N Pulmonary Embolism N Hernia N Lung Disease N Pacemaker N Deep Vein Thrombosis N Varicose Veins N Arriaga Bite N Liver Disease N Organ Transplant N Foot Deformity N Dialysis N Dyslipidemia N Thyroid Problems N Anemia N Back Pain N Diabetes N Seizures/Epilepsy N Heart Disease N Hypertension N Osteoporosis N Gynecological HistoryNo gynecological history recorded. Obstetrics History GPAL:G 0 P 0 0 0 0 Past Encounters Encounter ID Performer Location Encounter Start Date Encounter Closed Date Diagnosis/Indication Diagnosis SNOMED-CT Code Diagnosis ICD10 Code Diagnosis IMO Codes Diagnosis Note [id number] PRANAY SHIPLEY [facility] [address] [place] [phone] 06/08/2020 11:27:59 06/08/2020 12:44:45 Corns and callus 058537232 L84 Porokeratosis 080365332 Q82.8 Foot pain 33573152 M79.6 71 M79.672 Health Concerns Section Related Observation LastModified by Organization Detai ls LastModified Time None Recorded Concern Status LastModified by Organization Details LastModified Time None Recorded Advance Directives Directive None Recorded Payers Insurance Date Sequence Insurance Name Policy Number Policy Rodriguez Covered Member ID Rodriguez Member ID Guarantor Name 06/03/2020 1 [place]: [facility] PL[facility] Jaja Nowak [id number] Jaja Nowak Notes Date Note Type Note Provider Name and Address Organization Details Recorded Time 06/08/2020 text/html Patient presents today for new patient consultation of painful calluses on her feet. She points to pronounced calluses bilateral submet two as being the main areas of pain. She states that this has been a recurring issue for her for years. SHe states that she had seen a doctor at [facility] who had shaved them down for her but unfortunately they have returned and they are painful. PRANAY SHIPLEY DPVern [address] [place] [address], [phone], [facility], [facility] 06/08/2020 14:50:19 OBGyn Episode No OBEpisode recorded.
--- OUTSIDE RECORDS SUMMARY | 2025-09-24 14:59 | XMS_ITS | Encounter Summary ---
Author Organization [employer] Address [address] [place] [address] Care Team Providers Care Public Address System Mechanic Name Role Phone Fior Caldwell NP Primary Care Provider [phone] Encounter Details Date Type Department Care Team ([facility] st Contact Info) Description 07/20/2025 Telephone [facility] MEDICINE [address] [place] [address] Fior Caldwell NP [address] [place] [address] Social History Tobacco Use Types Packs/Day Years Used Date Smoking Tobacco: Never Smokeless Tobacco: Never Housing Stability Answer Date Recorded What is your housing situati on today? I do not have housing (Staying with others, in a hotel, in a intermediate, living outside on the street, on a [...] Description 09/28/2025 1:45 PM EST Office Visit [facility] MEDICINE [address] [place] [address] Fior Caldwell NP [address] [place] [address] documented as of this encounter Visit Diagnoses Not on filedocumented in this encounter Care Teams Public Address System Mechanic Relationship Specialty Start Date End Date Fior Caldwell NP [address] [place] [address] PCP - General Family Medicine 02/22/25 documented as of this encounter
--- OUTSIDE RECORDS SUMMARY | 2025-09-24 14:59 | XMS_ITS | Clinical Summary ---
Author Organization [employer] Address [address] [place] [address] Care Team Providers Care Cable Machine Operator Name Role Phone Fior Caldwell NP Primary Care Provider [phone] Allergies No known active allergies Medications cyanocobalami n (Vitamin B-12) 500 MCG tablet Take 1 tablet by mouth Once per day. Active Ascorbic Acid (vitamin C) 250 MG tablet Take 1 tablet by mouth Once per day. Active Multiple Vitamin (multivitamin ) tablet Take 1 tablet by mouth Once per day. Active gabapentin (Neurontin) 100 MG capsule TAKE 1 CAPSULE (100 MG) BY MOUTH AT BEDTIME FOR 7 DAYS, THEN 2 CAPSULES (200 MG) AT BEDTIME FOR 7 DAYS, THEN 3 CAPSULES (300 MG) AT BEDTIME FOR 16 DAYS. 69 capsule 025 Active valACYclovir (Valtrex) 500 MG tabletIndicat ions:HSV infection Take 4 tablets (2,000 mg) by mouth 2 times daily. 16 tablet 11 025 Active Tirzepatide-W eight Management (Zepbound) 5 MG/0.5ML solution auto-injector Indications:O besity (BMI 30-39.9) Inject 0.5 mL (5 mg) under the skin 1 (one) time per week for 28 days. INJECT ONE PEN (=5 MG) SUBCUTANEOUSLY ONCE A WEEK 2 mL 025 2024 Active Tirzepatide-W eight Management (Zepbound) 5 MG/0.5ML solution auto-injector Indications:O besity (BMI 30-39.9) Inject 0.5 mL (5 mg) under the skin 1 (one) time per week for 28 days. INJECT ONE PEN (=5 MG) SUBCUTANEOUSLY ONCE A WEEK 2 mL 025 2024 Discontinued(R eorder (will not trigger notification to Pharmacy)) Active Problems Problem Noted Date Diagnosed Date Right foot pain 07/22/2025 Urge incontinence of urine 07/22/2025 Incomplete defecation 07/22/2025 Morbid obesity (CMS/HCC) 06/25/2025 L4-L5 disc bulge 06/25/2025 Vulvar lesion 06/24/2025 Lumbar radiculopathy 05/17/2025 Assessment & Plan (07/30/2025 1:55 PM EDT): Referral to physiatry Assessment & Plan (06/10/2025 3:17 PM EDT): Exacerbated by weight HSV infection 05/04/2025 Health care maintenance 02/22/2025 [...] Lesion of vulva 06/21/2022 Thumb injury 09/21/2021 Arthritis 06/08/2020 Acquired keratosis palmaris et plantaris 017 Acrochordon [...] Encounters Date Type Department Care Team Description 09/24/2025 Refill [facility] [address] [place] [address] Fior Caldwell NP Obesity (BMI 30-39.9) 09/21/2025 Travel 08/24/[address] [facility] [address] [place], [place] [phone] Fior Caldwell NP Obesity (BMI 30-39.9) 07/26/2025 Telephone [facility] [address] [place], [place] [phone] Fior Caldwell NP 07/23/[address] [facility] [address] [place] [address] Macie Cody RN 07/20/[address] [facility] [address] [place], [place] [phone] Fior Caldwell NP 07/02/[address] [facility] [address] [place] [address] Fior Caldwell NP nov recall 06/25/2025 3:30 PM EDT Office Visit [address] [address] Fior Caldwell NP Morbid obesity (CMS/HCC) (Primary Dx); Obesity (BMI 30-39.9); L4-L5 disc bulge; Lumbar radiculopathy 06/25/2025 Travel 06/24/2025 9:45 AM EDT Office Visit [address] [address] Tiana Lake MD Lumbar radiculopathy (Primary Dx) 06/24/[address] [facility] [address] [place] [address] Hawa Patten MA Chart Prep 06/24/2025 Travel from Last 3 Months Immunizations Immunization Administration [...] with others, in a hotel, in a long term, living outside on the street, on a [...] Orientation Straight 09/21/2025 4: 38 AM EST Last Filed Vital Signs Vital Sign Reading Time Taken Comments Blood Pressure 114/76 06/25/2025 4:01 PM EDT Pulse 56 06/25/2025 4:01 PM EDT Temperature 36.3 C (97.4 F) 06/25/2025 4:01 PM EDT Respiratory Rate 16 06/25/2025 4:01 PM EDT Oxygen Saturation 98% 06/25/2025 4:01 PM EDT Inhaled Oxygen Concentration - - Weight 82.8 kg (182 lb 9.6 oz) 06/25/2025 4:01 P M EDT Height 157.5 cm (5' 2 ) 06/25/2025 4:01 PM EDT Body Mass Index 33.4 06/25/2025 4:01 PM EDT Plan of Treatment Upcoming Encounters Date Type Department Care Team (Late st Contact Info) Description 09/28/2025 1:45 PM EST Office Visit [facility] [address] [place] [address] Fior Caldwell, MICHAEL [address] [place] [address] Health Maintenance Due Date Last Done Comments CT Colonography 1973 Colonoscopy 1973 FIT 1973 HIV Screening 1973 Lipid Panel 1973 Sigmoidoscopy 1973 Derm Melanoma Skin Check 1973 Family Planning (PISQ) 1988 Hepatitis C Screening 1991 DTaP/Tdap/Td Vaccines (1 - Tdap) 1992 Hepatitis B Vaccines (1 of 3 - 19+ 3-dose series) 1992 Pneumococcal Vaccine: 50+ Years (1 of 1 - PCV) 2023 Zoster Vaccines (1 of 2) 2023 COVID-19 Vaccine (3 - 2024-2 6 season) 2025 01/19/2021, 12/13/2020 Influenza Vaccine (#1) 2025 09/13/2018 Alcohol/Substance Use Screening 02/22/2026 02/22/2025 Depression Screening 02/22/2026 02/22/2025, 02/22/2025 SDOH Screening 02/22/2026 02/22/2025 FOBT 02/26/2026 02/26/2025 Disability Screening 06/25/2026 06/25/2025 Tobacco Screening 06/25/2026 06/25/2025 Mammogram 04/13/2027 04/13/2025 Cervical Cancer Screening 08/22/2027 HPV/Cotest 08/22/2027 08/22/2022 Pap Smear 08/22/2027 08/22/2022 Colorectal Cancer Screening 02/27/2028 FIT DNA/Cologuard 02/27/2028 [...] Procedure Name Priority Date/Time Associated Diagnosis Comments AMB REFERRAL TO PHYSICAL MEDICINE REHAB/PHYSIATRY Routine 08/16/2025 L4-L5 disc bulge BI MAMMOGRAM SCREENING TOMOSYNTHESIS BILATERAL Routine 04/13/2025 12:35 PM EDT Breast screening LAB COLOGUARD COLON CANCER SCREEN Routine 02/26/2025 7:38 AM EDT Screening for colon cancer PAP/HPV Routine 08/22/2022 from Last 3 Months or Most Recently Relevant to Health Maintenance Results * Referral to Physiatry (08/16/2025) Fior Caldwell NP OUTPATIENT REFERRAL ORDERABLES F inal Result * BI Mammogram Screening Tomosynthesis Bilateral (04/13/2025 12:35 PM EDT) Anatomical Region Laterality Modality Breast Bilateral Mammography 04/13/2025 12:3 5 PM EDT Narrative 04/18/2025 7:27 PM EDT [facility] [address] [place] [address] Mammography Report Signed Patient: Jaja Nowak MR#: [id number] 82 : 1975 Acct:[id number] Age/Sex: 50 / F ADM Date: 04/13/25 Loc: [facility] Attending Dr: Fior Caldwell NP Ordering Physician: Fior Caldwell NP Results: 2Benign Findings Date of Service: 04/13/25 Follow Up: 1 Year From Orig inal Mammogram Procedure(s): MM tomosynthesis screening BI Accession Number(s): [id number] cc: Fior Caldwell TYPING ELEMENT MACHINE OPERATOR EXAMINATION: MM SCREENING DIGITAL BREAST TOMOSYNTHESIS, BILATERAL [...] 04/18/25 192 DD/ 1235 TD/TT: 04/13/25 1246 Barrel Line Operator: Procedure Note Donotuseinterpreter, Image - 04/18/2025 [facility] [address] [place], [place] [address] Mammography Report Signed Patient: Jaja NowakMR#: [id number] 82 : 1975Acct:[id number] Age/Sex: 50 / FADM Date: 04/13/25 Loc: HO.MAMMO Attending Dr: Fior Caldwell TYPING ELEMENT MACHINE OPERATOR Ordering Physician: Fior Caldwell NPResults: 2Benign Findings Date of Service: 04/13/25Follow Up: 1 Year From Orig ina Mammogram Procedure(s): MM tomosynthesis screening BI Accession Number(s): [id number] cc: Fior Caldwell TYPING ELEMENT MACHINE OPERATOR EXAMINATION: MM SCREENING DIGITAL BREAST TOMOSYNTHESIS, BILATERAL [...] Sylvia Quijano DO 04/18/2025 07:25 PM EDT Dictated By: Sylvia Quijano DO Signed By: <Electronically signed by Sylvia Quijano DO in OV> 04/18/25 1925 DD/ 1235 TD/TT: 04/13/25 1246 Barrel Line Operator: Fior Caldwell TYPING ELEMENT MACHINE OPERATOR IMG BI PROCEDURES Edited Result - Final * Cologuard?? colon cancer screening (02/26/2025 7:38 AM EDT) Cologuard Result Negative Negative 03/04/20 12:25 AM EDT [facility] (CLIA #:[id number]) Comment: NEGATIVE TEST RESULT. A negative Cologuard [...] screened with both Cologuard and colonoscopy. (Amanda Matta et al, N Engl J Med 2014;370(14):4640-1859) The normal value (reference range) for this assay is negative. COLOGUARD RE-SCREENING RECOMMENDATION: Periodic colorectal cancer screening is an important part of preventive healthcare for asymptomatic individuals at average risk for colorectal cancer. Following a negative Cologuard result, the [place] [employer] Society and U.S. Multi-Society Task Force screening guidelines recommend a Cologuard re-screening interval of 3 years. References: [place] [employer] Guideline for Colorectal Cancer Screening: https://www.cancer.org/cancer/xqeza-tstmcp-jnapwe/xprdxtxij-onhqqxrhr-jyatfqk/ac s-rec ommendations.html.; Uche DK, Waldemar CR, Suresh KendallK, Colorectal Cancer Screening: Recommendations for Physicians and Patients from the U.S. Multi-Society Task Force on Colorectal Cancer Screening , Am J Gastroenterology 2017; 112:5646-3910. TEST DESCRIPTION: Composite algorithmic analysis of stool [...] (Amanda Gutierrez al, N Engl J Med 2014;370(14):3214-5689.) Cologuard may produce a false negative or false positive result (no colorectal cancer or precancerous polyp present at colonoscopy follow up). A negative Cologuard test result does not guarantee the absence of CRC or advanced adenoma (pre-cancer). The current Cologuard screening interval is every 3 years. ([place] [employer] Society and U.S. Multi-Society Task Force). Cologuard performance data in a 10,000 patient pivotal study using colonoscopy as the reference method can be accessed at the following location: www.[employer]/results. Additional description of the Cologuard test process, warnings and precautions can be found at www.[employer]. Stool specimen (specimen) 02/26/2025 7:38 AM EDT 02/27/2025 12:09 PM EDT Fior Caldwell NP LAB MOLECULAR DIAGNOSTICS ORDERA BLES Final Result [facility] (CLIA #:[id number]) [address] [place] [address], [place] [phone] * HM PAP/HPV (08/22/2022) Pap Smear 1. NILM 1. NILM HPV Not Detected Undetected, Indeterminat e, Quantitative , Not Detected Historical Provider HEALTH MAINTENANCE Edited Result - Final from Last 3 Months or Most Recently Relevant to Health Maintenance Insurance [facility] Care Teams Cable Machine Operator Relationship Specialty Start Date End Date Fior Caldwell NP [address] [place] [id number] PCP - General Family Medicine 02/22/25
--- OUTSIDE RECORDS SUMMARY | 2025-09-24 14:59 | XMS_ITS | Encounter Summary ---
Author Organization [facility] Address [address] [place] [address] Care Team Providers Care Bulb Grower Name Role Phone Amara Ashraf MD Primary Care Provider [phone] Reason for Visit * Reason Onset Date Comments Appointment scheduled-patient c/b 06/24/2020 patient returned call to schedule ILK and cosmetic consult. Encounter Details Date Type Department Care Team (Late st Contact Info) Description 06/24/2020 Telephone [facility] Central Scheduling Department [address] [place] [address] Telephone Intake, Staff Appointment scheduled-patient c/b (patient returned call to schedule ILK and cosmetic consult.) Social History Tobacco Use Types Packs/Day Years Used Date Smoking Tobacco: Never Smokeless Tobacco: Never Comments:: Alcohol Use Standard Drinks/Week Comments No 0 (1 standard drink = 0.6 oz pur e alcohol) Comments Unknown Sex and Gender Information Value Date Recorded Sex Assigned at Female 07/13/2021 12:21 PM EDT Legal Sex Female 6:49 PM EDT Gender Identity Female 07/13/2021 12:21 PM EDT Sexual Orientation Straight 07/13/2021 12 :21 PM EDT documented as of this encounter Miscellaneous Notes * Telephone Encounter - Cordelia Gee - 07/04/2020 3:16 PM EDT Scheduled 08/25/2020 * Telephone Encounter - Cordelia Gee - 07/01/2020 3:16 PM EDT LVM to schedule * Telephone Encounter - Rebekah Mclain - 06/24/2020 9:49 AM EDT Patient returned the call to schedule ILK and cosmetic consult. No answer during warm transfer attempt. please call patient at [phone] documented in this encounter Plan of Treatment Not on file documented as of this encounter Visit Diagnoses Not on filedocumented in this encounter Additional Health Concerns Infection Onset Date Last Indicated Resolved Time COVID-19 - Suspected infection 10/18/2020 10/19/2020 10/19/2020 8:50 PM EST documented as of this encounter Care Teams Bulb Grower Relationship Specialty Start Date End Date Amara Ashraf MD [address] [place] [address] PCP - General Family Medicine 06/06/17 08/08/25 documented as of this encounter
--- OUTSIDE RECORDS SUMMARY | 2025-09-24 14:59 | XMS_ITS | Encounter Summary ---
Author Organization [employer] Address [address] [place] [address] Care Team Providers Care Floral Artist Name Role Phone Fior Caldwell NP Primary Care Provider [phone] Reason for Visit * Reason Onset Date Comments Med Refill 09/24/2025 Encounter Details Date Type Department Care Team (Late st Contact Info) Description 09/24/2025 Refill [facility] [address] [place] [address] Fior Caldwell NP [address] [facility] [place] [address] Obesity (BMI 30-39.9) Social History Tobacco Use Types Packs/Day Years Used Date Smoking Tobacco: Never Smokeless Tobacco: Never Housing Stability Answer Date Recorded What is your housing situati on today? I do not have housing (Staying with others, in a hotel, in a jail, living outside on the street, on a [...] AM EST documented as of this encounter Miscellaneous Notes * Telephone Encounter - Rubina Hayden LPN - 09/24/2025 1:13 PM EST Franko Childress I need a refill on my Zep injections. Please note patient has an appointment [phone] documented in this encounter Plan of Treatment Upcoming Encounters Date Type Department Care Team (Late st Contact Info) Description 09/28/2025 1:45 PM EST Office Visit [facility] [address] [place] [address] Fior Caldwell NP [address] [place] [address] documented as of this encounter Visit Diagnoses Diagnosis Obesity (BMI 30-39.9) documented in this encounter Care Teams Floral Artist Relationship Specialty Start Date End Date Fior Caldwell NP [address] [place] [address] PCP - General Family Medicine 02/22/25 documented as of this encounter
--- OUTSIDE RECORDS SUMMARY | 2025-09-24 14:59 | XMS_ITS | Clinical Summary ---
Author Organization [facility] Address [address] [address] Phone Care Team Providers Care Senior Android Software Engineer Name Role Phone Fior Caldwell NP Primary Care Provider [phone] Allergies No known active allergies Medications cyclobenzaprine (FLEXERIL) 10 MG tablet Take 1 tablet (10 mg total) by mouth 3 (three) times a day as needed. 20 tablet 1 Active ibuprofen (ADVIL,MOTRIN) 800 MG tablet ibuprofen 800 mg as needed Active cholecalciferol (VITAMIN D3) 2,000 unit tablet Take 2,000 Units by mouth. 1 Active ibuprofen (ADVIL,MOTRIN) 800 MG tablet 1 tab po tid 1 Active triamcinolone acetonide 0.5 % cream Apply topically. 1 Active triamcinolone acetonide 0.1 % cream Apply topically. 0 Active cyclobenzaprine (FLEXERIL) 5 MG tablet Take 5 mg by mouth. 4 Active mupirocin (BACTROBAN) 2 % ointmentIndicat ions:Abrasions of multiple sites Apply topically 2 (two) times a day. Apply to clean, dry skin. 30 g 5 Active Additional Information Patient not taking.Reported on 05/02/2025 IBUPROFEN, BULK, MISC 800 mg as needed Ac tive multivit with minerals/lutein (MULTIVITAMIN 50 PLUS ORAL) Active gabapentin (NEURONTIN) 100 MG capsule Take by mouth. 5 Active cyanocobalamin, vitamin B-12, 500 MCG tablet Take 1 tablet by mouth. Active chlorhexidine (PERIDEX) 0.12 % solution SWISH 15 ML FOR 30 SECONDS THEN SPIT. USE TWICE DAILY (MORNING AND EVENING) AFTER BRUSHING TEETH 5 Active ascorbic acid, vitamin C, (VITAMIN C) 250 MG tablet Take 1 tablet by mouth. Active acetaminophen (TYLENOL) 500 mg/15 mL oral solution Take by mouth. Activ e VITAMIN E ACETATE ORAL Take by mouth. 1 Active topiramate (TOPAMAX) 25 MG tablet 2 tab po hs 4 Active ascorbic acid, vitamin C, (VITAMIN C) 500 mg Chew Take by mouth. 1 Active cholecalciferol , vitamin D3, 25 mcg (1,000 unit) chewable tablet Take 10 mcg by mouth. 1 Active multivitamin-Ca -iron-minerals Tab Take 1 tablet by mouth. Active VITAMINS A AND D ORAL Active Active Problems Problem Noted Date Diagnosed Date Class 1 obesity 01/19/2025 Spider veins 03/06/2024 Lesion of vulva 06/21/2022 Class 2 obesity 06/21/2022 Thumb injury 09/21/2021 Social History Tobacco Use Types Packs/Day Years Used Date Smoking Tobacco: Never Smokeless Tobacco: Never Tobacco Cessation:Counseling Given: Not Answered Alcohol Use Standard Drinks/Week Comments Not Currently 0 (1 standard drink = 0.6 oz pur e alcohol) Education Answer Date Recorded Are you interested in more education? Not on aristeo e 03/15/2023 Are you concerned about learning? Not on file 03/15/2023 No 03/15/2023 No 03/15/2023 Digital Access Answer Date Recorded No 04/15/2023 No 04/15/2023 Reliable internet access at home? Not on file 04/15/2023 Device with a working camera? Not on file Comments Unknown Sex and Gender Information Value Date Recorded Sex Assigned at Female 11/23/2020 1:53 PM EST Legal Sex Female 12:35 PM EDT Gender Identity Female 11/23/2020 1:53 PM EST Sexual Orientation Straight 07/10/2025 1: 06 AM EDT Sexual Orientation Choose not to disclose 2024 1:06 AM EDT Last Filed Vital Signs Vital Sign Reading Time Taken Comments Blood Pressure 121/84 05/02/2025 11:33 AM EDT Pulse 64 05/02/2025 11:33 AM EDT Temperature 37.1 C (98.8 F) 05/02/2025 11:33 AM EDT Respiratory Rate 16 05/02/2025 11:33 AM EDT Oxygen Saturation 99% 05/02/2025 11:33 AM EDT Inhaled Oxygen Concentration - - Weight 80.3 kg (177 lb) 05/02/2025 11:33 AM EDT Height 157.5 cm (5' 2 ) 05/02/2025 11:33 AM EDT Body Mass Index 32.37 05/02/2025 11:33 AM EDT Plan of Treatment Health Maintenance Due Date Last Done Comments Adult Td,Tdap Booster 1973 DEPRESSION SCREENING 1985 HEPATITIS C SCREENING 1991 HIV ONE-TIME SCREENING (18-6 5 YEARS) 1991 PAP SMEAR 1994 COLONOSCOPY 2018 FIT TEST 2018 FOBT 2018 SIGMOIDOSCOPY 2018 VIRTUAL COLONOSCOPY 2018 PNEUMOCOCCAL VACCINES (50+ years) (1 of 1 - PCV) 2023 ZOSTER VACCINES (1 of 2) 2023 SCREENING FOR DIABETES 07/05/2024 07/05/2021 INFLUENZA VACCINE (#1) 2025 09/13/2018 COVID-19 VACCINE (3 - 2024-2 6 season) 2025 01/19/2021, 12/13/2020 MAMMOGRAM 04/13/2027 04/13/2025 COLOGUARD 02/27/2028 02/26/2025 COLORECTAL CANCER SCREENING 02/27/2028 LIPID PANEL 11/21/2028 11/21/2023, 12/10/2019 RSV VACCINE (1 - 1-dose 75+ series) 2048 SMOKING STATUS SCREENING (On ce After 26 Yrs) Completed 05/02/2025 HEPATITIS A VACCINES Aged Out No long er eligible based on patient's age to complete this topic HIB VACCINES Aged Out No longer eligi ble based on patient's age to complete this topic IPV VACCINES Aged Out No longer eligi ble based on patient's age to complete this topic MENINGOCOCCAL VACCINES (ACWY) Aged Out No longer eligible based on patient's age to complete this topic MENINGOCOCCAL VACCINES (B) Aged Out N o longer eligible based on patient's age to complete this topic Medical Devices Not on file Insurance [facility] Odd[employer] [facility] [employer] INSURANCE [facility] [employer] [facility] [employer] DIRECT Care Teams Senior Android Software Engineer Relationship Specialty Start Date End Date Fior Caldwell NP [address] [place] [address] PCP - General Nurse Practitioner 01/19/25 Additional Source Comments The information contained in this document represents components of the legal health record. It is not the complete legal health record.[facility]
--- OUTSIDE RECORDS SUMMARY | 2025-09-24 14:59 | XMS_ITS | Encounter Summary ---
Author Organization [facility] Address [address] [place] [address] Care Team Providers Care Air Carrier Maintenance Inspector Name Role Phone Amara Ashraf MD Primary Care Provider [phone] Encounter Details Date Type Department Care Team (Late st Contact Info) Description 08/04/2025 Giving Assistantt Message [facility] Financial Clearance Department [address] [place] [id number] Cheryl Payan lidocaine (LIDODERM) 5% patch Social History Tobacco Use Types Packs/Day Years Used Date Smoking Tobacco: Never Smokeless Tobacco: Never Comments:: Alcohol Use Standard Drinks/Week Comments No 0 (1 standard drink = 0.6 oz pur e alcohol) [facility] Utilities Answer Date Recorded In the past 12 months has th e electric, gas, oil, or water company threatened to shut off services in your home? No 06/29/2025 Hunger Vital Sign Answer Date Recorded Within the past 12 months, y ou worried that your food would run out before you got the money to buy more. Never true 06/29/20 25 Within the past 12 months, t he food you bought just didn't last and you didn't have money to get more. Never true 06/29/2025 Transportation Answer Date Recorded In the past 12 months, has l ack of reliable transportation kept you from medical appointments, meetings, work or from getting things needed for daily living? No 06/29/2025 Housing Answer Date Recorded Housing Risk Low 2 06/29/2025 Housing Risk Medium Not on file 06/29/2025 Housing Risk High Not on file 06/29/2025 What is your living situation today? [facility] 06/29/2025 Comments Unknown Sex and Gender Information Value Date Recorded Sex Assigned at Female 07/13/2021 12:21 PM EDT Legal Sex Female 6:49 PM EDT Gender Identity Female 07/13/2021 12:21 PM EDT Sexual Orientation Straight 07/13/2021 12 :21 PM EDT documented as of this encounter Plan of Treatment Not on file documented as of this encounter Visit Diagnoses Not on filedocumented in this encounter Care Teams Air Carrier Maintenance Inspector Relationship Specialty Start Date End Date Amara Ashraf MD [address] [place] [address] PCP - General Family Medicine 06/06/17 08/08/25 documented as of this encounter
--- OUTSIDE RECORDS SUMMARY | 2025-09-24 14:59 | XMS_ITS | Patient Health Record ---
Author Organization [facility] Address [address] [place] [address] Care Team Providers Care Joy Loading Machine Operator Name Role Phone Amara Ashraf Primary Care Provider Cristian Nuno Unavailable [phone] Reason For Referral No Information Plan Of Treatment No Information Insurance Providers Payer Name Payer Address Payer Phone Subscriber Number Group Number Insured Name Patient Relationship to Insured Coverage Start Date Coverage End Date [facility] [address] [place] [address] [phone] [id number] Jaja Nowak Self - patient is the insured
--- OUTSIDE RECORDS SUMMARY | 2025-09-24 14:59 | XMS_ITS | Encounter Summary ---
Author Organization [facility] Address [address] [place] [address] Care Team Providers Care Energy Systems Engineer Name Role Phone Amara Ashraf MD Primary Care Provider [phone] Reason for Visit * Reason Onset Date Comments PAC Surgery/procedure Scheduling 11/21/2023 Encounter Details Date Type Department Care Team (Late st Contact Info) Description 11/21/2023 Telephone [facility] Endoscopy [address] [facility] [place] [place] [address] Telephone Intake, Staff PAC Surgery/procedure Scheduling Social [...] on filedocumented in this encounter Care Teams Energy Systems Engineer Relationship Specialty Start Date End Date Amara Ashraf MD [address] [place] [address] PCP - General Family Medicine 06/06/17 08/08/25 documented as of this encounter
--- OUTSIDE RECORDS SUMMARY | 2025-09-24 14:59 | XMS_ITS | Clinical Summary ---
Author Organization [facility] Address [address] [place] [address] Care Team Providers Care Administrative Judge Name Role Phone Unavailable Primary Care Provider Unavailabl e Allergies No known active allergies Medications clindamycin (CLEOCIN T) 1 % lotionIndication s:Dermatitis, unspecified Apply to inflamed lesions on body twice daily - 30 day supply rx'ed. 60 mL 3 2 Active topiramate (TOPAMAX) 25 mg tablet 2 tab po hs 180 tablet 4 Active cyclobenzaprine (FLEXERIL) 5 mg tablet Take 1 tablet (5 mg total) by mouth nightly as needed for muscle spasms (neck pain). 10 tablet 4 Active ibuprofen (MOTRIN) 800 mg tablet Take 1 tablet (800 mg total) by mouth every 8 hours as needed for pain. pain 90 tablet 1 5 Active lidocaine (LIDODERM) 5% patchIndications :Cervicalgia Apply 1 patch topically to the affected area once a day. Remove and discard patch within 12 hours or as directed. 30 patch 2 5 Active Active Problems Problem Noted Date Diagnosed Date Class 2 obesity 06/21/2022 Lesion of vulva 06/21/2022 Thumb injury 09/21/2021 Neoplasm of uncertain behavior of skin 7 Inflamed seborrheic keratosis 06/07/2017 Seborrheic keratosis 06/07/2017 Acrochordon 06/07/2017 Stucco keratoses 06/07/2017 Callus of foot 04/23/2017 Bilateral foot pain 04/23/2017 History of pain when walking 04/23/2017 Congenital pes planus 04/23/2017 Dysuria 04/16/2017 Polyuria 04/16/2017 Numerous moles 04/08/2017 Menorrhagia 02/25/2017 Pain in hand 02/20/2017 Elevated antinuclear antibody (SORAYA) level 2016 Cough 12/26/2016 Fatigue 12/26/2016 Sore throat 12/26/2016 Eczema 12/26/2016 Heartburn 12/26/2016 Polyarthritis 12/26/2016 Abdominal pain 11/27/2016 Varicose veins with inflammation 04/19/2016 Encounters Date Type Department Care Team Description 08/04/2025 EQALhart Message [facility] Financial Clearance Department [address] [place] [address] Cheryl Payan lidocaine (LIDODERM) 5% patch 08/02/2025 Refill [facility] [address] [place] [address] Eric Velasquez LPN Cervicalgia 06/29/2025 [facility] Message [address] Department [address] [facility] [place] [id number] Maximus Maurer MD Questionnaire Submission from Last 3 Months Immunizations Immunization Administration Dates Next Due Covid-19 Monovalent Vaccine, Moderna, mRNA, PF 0 01/19/2021,12/13/2020 Influenza, Injectable, Quadrivalent, Preservativ e Free 09/13/2018 Tuberculin Skin Test; Earle ed Protein Derivative Solution, Intradermal 04/08/2017 Family History Medical History Relation Name Comments Other Father Family History of diabetes mellitus Migraines Mother Other Mother Family History of hypertension Migraines Sister Relation Name Status Comments Father Mother Sister Social History Tobacco Use Types Packs/Day Years Used Date Smoking Tobacco: Never Smokeless Tobacco: Never Tobacco Cessation:Counseling Given: Not Answered Comments:: Alcohol Use Standard Drinks/Week Comments No 0 (1 standard drink = 0.6 oz pur e alcohol) [facility] Utilities Answer Date Recorded In the past 12 months has e electric, gas, oil, or water company [...] Orientation Straight 07/13/2021 12 :21 PM EDT Last Filed Vital Signs Vital Sign Reading Time Taken Comments Blood Pressure 122/74 10/07/2024 9:35 AM EST Pulse 65 10/07/2024 9:35 AM EST Temperature 36.6 C (97.8 F) 10/07/2024 9:35 AM EST Respiratory Rate 18 10/07/2024 9:35 AM EST Oxygen Saturation 100% 10/07/2024 9:35 AM EST Inhaled Oxygen Concentration - - Weight 78 kg (172 lb) 10/07/2024 9:35 AM EST Height 157.5 cm (5' 2 ) 10/07/2024 9:35 AM EST Body Mass Index 31.46 10/07/2024 9:35 AM EST Plan of Treatment Health Maintenance Due Date Last Done Comments Cologuard 1973 Colon Cancer Screening 1973 Colonoscopy 1973 FOBT / Fit Test 1973 Sigmoidoscopy 1973 DTaP,Tdap,and Td Vaccines (1 - Tdap) 1995 Mammogram 2013 HPV and Pap Smear 05/24/2022 05/24/2017, 05/11/2016 Pneumococcal Vaccine: 50+ Ye ars (1 of 1 - PCV) 2023 Zoster Vaccines (1 of 2) 2023 Alcohol/Substance Use Screening 11/18/2024 , 11/20/2023 Depression Screening and Follow-Up 11/18/2024 06/25/2024 Cervical Cancer Screening 05/02/2025 Pap Smear 05/02/2025 05/02/2022, 07/0 05/2017, 05/11/2016, Additional history exists Influenza Vaccine (#1) 2025 09/13/2018 [facility] ual Screening 06/29/2026 06/29/2025 Diabetes Screening 11/21/2026 11/21/2023, 0 05/16/2020, 12/10/2019, Additional history exists RSV Vaccine (60+ years old a nd patients) (1 - 1-dose 75+ series) 2048 COVID-19 Vaccine Discontinued 01/19/2021, 12/13/2020 HIV Screening Discontinued 04/22/2023 Hepatitis C Screening Completed 04/22/2023 Hepatitis B Vaccines Discontinued Procedures * Due to [place] law, this organization might not be sharing negative HIV tests. Procedure Name Priority Date/Time Associated Diagnosis Comments PROCEDURE - SCANNED 07/13/2025 GLUCOSE, RANDOM Routine 11/21/2023 10:19 AM EST Healthcare maintenance HEPATITIS PANEL, ACUTE Routine 04/22/2023 12:10 PM EDT STI (sexually transmitted infection) [facility] W/HPV, MRNA, REFLEX HPV 16/18/[address]/NG Routine 05/24/2017 12:00 AM EDT from Last 3 Months or Most Recently Relevant to Health Maintenance Results * Due to [place] law, this organization might not be sharing negative HIV tests. * PROCEDURE - SCANNED (07/13/2025) us Onbase Scan [facility] SCANNED PROCEDURES Final Resu lt * Glucose, random (11/21/2023 10:19 AM EST) Glucose 84 65 - 99 mg/dL 11/22/2023 2:46 AM EST [facility] Comment: Fasting reference interval Blood Structure of peripheral vein / Unknown 11/21/2023 10:19 AM EST 11/21/2023 9:50 PM EST us Amara Ashraf MD LAB BLOOD ORDERABLES Final Resul t [facility] [address] [facility] [address], [place] [address], [place] [phone] [facility] [address] [place] [address] * Hepatitis panel, acute (04/22/2023 12:10 PM EDT) Hepatitis A IgM NON-REACT EMIL NON-REACT EMIL 04/23/2023 2:44 AM EDT [facility] Hepatitis B Surface Antigen NON-REACT EMIL NON-REACT EMIL 04/23/2023 2:44 AM EDT [facility] Hepatitis B Core Antibody NON-REACT EMIL NON-REACT EMIL 04/23/2023 2:44 AM EDT [facility] Hepatitis C Antibody NON-REACT EMIL NON-REACT EMIL 04/23/2023 2:44 AM EDT [facility] Signal To Cut-Off 0.07 <1.00 04/23/2023 2:44 AM EDT [facility] Comment: HCV antibody was non-reactive. There is no laboratory evidence of HCV infection. In most cases, no further action is required. However, if recent HCV exposure is suspected, a test for HCV RNA (test code 19895) is suggested. For additional information please refer to http://education.Mobakids.ProspX/faq/TVW44x3 (This link is being provided for informational/ educational purposes only.) For additional information, please refer to http://education.Mobakids.ProspX/faq/LMB724 (This link is being provided for informational/ educational purposes only.) Blood Structure of peripheral vein / Unknown 04/22/2023 12:10 PM EDT 04/23/2023 1:34 AM EDT us Amara Ashraf MD LAB BLOOD ORDERABLES Final Resul t [facility] [address] [place] [address], [place] [address], [place] [phone] [facility] [address] [address] * [facility] w/HPV, mRNA, Reflex HPV 16/18[address]/NG (05/24/2017 12:00 AM EDT) Tis,Mrna/Rfx, Ctng (See Below) [facility] Comment: TIS,mRNA/rfx, CTNG This test was performed using the APTIMA COMBO2 Assay ([employer] . The analytical performance characteristics of this assay, when used to test SurePath specimens have been determined by [employer]. . CLINICAL INFORMATION: Routine exam LMP: 05/07/17 PREV. PAP: 2016 PREV. BX: LEEP 2013 SOURCE: Cervix, Endocervix STATEMENT OF ADEQUACY: Satisfactory for evaluation. Endocervical/transformation zone component present. INTERPRETATION/RESULT: Negative for intraepithelial lesion or malignancy. COMMENT: This Pap test has been evaluated with computer assisted technology. KICKBOXING INSTRUCTOR: ANTONIA FRENCH(ASCP) CT screening location: [place] [address] HPV mRNA E6/E7: Not Detected This test was performed using the APTIMA HPV Assay ([employer] . This assay detects E6/E7 viral messenger RNA (mRNA) from 14 high-risk HPV types (16,18,31,33,35,39,45,51,52,56,58,59,66,68). CHLAMYDIA TRACHOMATIS RNA, TMA: NOT DETECTED NEISSERIA GONORRHOEAE RNA, TMA: NOT DETECTED Report Comments: Received Date: [id number] Performing Site: NL[facility] [address] [address] Director: DELVIN CAMILO 05/24/2017 12:0 0 AM EDT 05/24/2017 6:53 PM EDT Seema Mims COURTESY DRIVER [facility] O RDERABLES Final Result [facility] [address] [place] [address], [place] [phone] from Last 3 Months or Most Recently Relevant to Health Maintenance Insurance [facility] [employer]
== END 2025-09-24 13:59 | disposition home or self-care (01) ==
LOC: HO.HGI 12:52
PROVIDERS: PCP Nurse Practitioner Family; Visit Provider Nurse Practitioner
DX: R19.7 Diarrhea, unspecified (principal)
CPT/HCPCS: 99203

== ENCOUNTER → 2025-09-24 12:51 | Outpatient (BNVA) | payer OTHER, SELFPAY | PROVIDERS: PCP Nurse Practitioner Family; Visit Provider Nurse Practitioner | DX: R19.7 Diarrhea, unspecified (principal); M47.27 Other spondylosis with radiculopathy, lumbosacral region | CPT/HCPCS: 99202 ==